=== PATIENT | female | born 1970 | race Caucasian/White ===

== ENCOUNTER 2016-05-24 09:08 | Emergency (ER) | payer BC ==
[2016-05-24 09:47] VITALS: BP 153/84
[2016-05-24] MEDS ORDERED: Albuterol 0.083% 2.5 MG/3 ML Neb Soln NEB ONE (10:08)
--- NOTE | 2016-05-24 10:08 | EDM.PDOC ---
ED HISTORY OF PRESENT ILLNESS - General Chief Complaint: Respiratory Problem Stated Complaint: SHORTNESS OF BREATH Time Seen by Provider: 05/24/16 09:33 Source of Information: Reports: Patient History Limitations: Reports: No limitations - History of Present Illness INITIAL COMMENTS - FREE TEXT/NARRATIVE: Patient presents with cough for the last five days. Fever up to 99.9 yesterday. Two days ago she saw her PCP in clinic and was started on Zithromax which she has been taking as directed. She also has asthma and has been using her albuterol nebulizer every 4 hours as directed, along with her Advair and inhalers. Yesterday and today she has been having shortness of breath along with worsening cough (unproductive). She takes Lisinopril, Metoprolol, Lasix and Potassium; a year ago her potassium level was low and she had cramping in her legs. She has cramping in her legs again but says she has been taking the meds as directed. - Related Data Allergies/ADRs: Allergies Allergy/AdvReac Type Severity Reaction Status Date / Time Latex, Natural Rubber Allergy Unknown Burning Verified 04/23/15 18:30 Home Meds: Home Meds Albuterol Sulfate [Ventolin Hfa] 2 puff INH Q4H PRN 06/09/13 [History] Albuterol [Proventil] 2.5 mg INH QIDRT PRN 06/09/13 [History] Furosemide [Lasix] 20 mg PO ASDIRECTED PRN 06/09/13 [History] Ipratropium/Albuterol Sulfate [Duoneb 0.5 MG-3 MG/3 ML] 3 ml IH QID PRN [History] Metoprolol Tartrate 25 mg PO BID 06/09/13 [History] Potassium Chloride [Klor-Con M20] 20 meq PO BID 06/09/13 [History] atorvaSTATin [Lipitor] 15 mg PO BEDTIME 06/09/13 [History] metFORMIN [Glucophage] 1,000 mg PO BIDM 06/09/13 [History] Ondansetron [Zofran ODT] 4 mg PO Q6H PRN #20 tab.dis 06/11/13 [Rx] Lisinopril [Prinivil] 10 mg PO DAILY 04/09/15 [History] traMADol [Ultram] 50 mg PO Q4H PRN 04/09/15 [History] Fluticasone/Salmeterol [Advair 100-50] 1 puff INH BID 04/10/15 [History] Azithromycin [Zithromax] 250 mg PO DAILY 05/24/16 [History] Escitalopram [Lexapro] 10 mg PO DAILY 05/24/16 [History] LORazepam [Ativan] 0.5 mg PO BID 05/24/16 [History] Omeprazole 20 mg PO DAILY 05/24/16 [History] Triamcinolone Acetonide [Triamcinolone Acetonide 0.1% Crm] 15 gm TOP BID [History] Past Medical History HEENT History: Reports: Sinusitis Cardiovascular History: Reports: High cholesterol, Hypertension Respiratory History: Reports: Asthma Gastrointestinal History: Reports: None [employer] History: Reports: Polycystic Ovaries - Infectious Disease History Infectious Disease History: Reports: Chicken pox, Measles - Past Surgical History HEENT Surgical History: Reports: None GI Surgical History: Reports: Cholecystectomy Female Surgical History: Reports: Hysterectomy Social & Family History - Family History Cardiac: Reports: Angina, Heart failure, High cholesterol, Hypertension, [place] Respiratory: Reports: COPD : Reports: Renal disease/insufficiency Psychiatric: Reports: Bipolar, Depression, Panic attack - Tobacco Use Smoking Status *Q: Never Smoker Second Hand Smoke Exposure: Yes - Caffeine Use Caffeine Use: Reports: Soda, Tea - Alcohol Use Days Per Week of Alcohol Use: 0 - Recreational Drug Use Recreational Drug Use: No ED ROS GENERAL - Review of Systems Review Of Systems: See Below Constitutional: Reports: fever, malaise HEENT: Denies: Eye discharge, Throat pain, Throat swelling Respiratory: Reports: shortness of breath, wheezing, cough. Denies: sputum Cardiovascular: Reports: Blood pressure problem. Denies: Chest pain, Syncope GI/Abdominal: Denies: Abdominal pain, Vomiting : Reports: no symptoms Musculoskeletal: Reports: leg pain Skin: Denies: cyanosis, jaundice, mottled, pallor, diaphoresis Neurological: Denies: confusion, dizziness, headache Psychiatric: Denies: Agitation, Anxiety, Confusion ED EXAM, GENERAL - Physical Exam Exam: See Below Exam Limited By: No limitations General Appearance: alert, WD/WN, no apparent distress, anxious, obese Eye Exam: bilateral eye: EOMI, normal inspection, PERRL Ears: normal external exam, normal canal, hearing grossly normal, normal TMs Nose: normal inspection. No: nasal deformity, nasal drainage Throat/Mouth: Normal inspection, Normal lips, Normal teeth, Normal gums, Normal oropharynx, Normal voice, No airway compromise Head: atraumatic, normocephalic Neck: normal inspection, supple, non-tender, full range of motion Respiratory/Chest: no respiratory distress, no accessory muscle use, decreased breath sounds (in bilat bases), crackles (in bilat bases and middle lung gomez) , wheezing (mild in bases). No: rhonchi, stridor, prolonged expiration Cardiovascular: regular rate, rhythm, no murmur GI/Abdominal: no distention Extremities: normal range of motion Neurological: alert, oriented, normal cognition, no motor/sensory deficits Psychiatric: normal affect, anxious, tearful Skin Exam: Warm, Dry, Intact, Normal color, No rash Lymphatic: no adenopathy Course - Vital Signs Last Recorded V/S: Last Vital Signs Temp 98.5 F 05/24/16 09:17 Pulse 107 H 05/24/16 09:17 Resp 20 05/24/16 09:46 BP 153/84 H 05/24/16 09:46 Pulse Ox 96 05/24/16 09:17 - Orders/Labs/Meds Orders: Active Orders 24 hr Category Date Time Status RT Aerosol Therapy [RC] ASDIRECTED Care 05/24/16 10:08 Ordered Chest 2V [CR] Stat Exams 05/24/16 09:57 Ordered Labs: Laboratory Tests 05/24/16 05/24/16 Range/Units 10:05 10:05 WBC 10.5 H (5.0-10.0) 10^3/uL RBC 5.14 (3.80-5.50) 10^6/uL Hgb 11.5 L (12.0-16.0) g/dL Hct 35.6 L (37.0-47.0) % MCV 69.2 L (82.0-92.0) fL MCH 22.4 L (27.0-31.0) pg MCHC 32.3 (32.0-36.0) g/dL RDW 19.1 H (11.5-14.5) % Plt Count 437 H (150-300) 10^3/uL MPV 7.4 (7.4-10.4) fL Neut % (Auto) 73.5 H (50.0-70.0) % Lymph % (Auto) 14.6 L (20.0-40.0) % Luce % (Auto) 7.4 (2.0-8.0) % Eos % (Auto) 3.8 H (1.0-3.0) % Baso % (Auto) 0.7 (0.0-1.0) % Neut # 7.7 H (2.5-7.0) 10^3/uL Lymph # 1.5 (1.0-4.0) 10^3/uL Luce # 0.8 (0.1-0.8) 10^3/uL Eos # 0.4 H (0.1-0.3) 10^3/uL Baso # 0.1 (0.0-0.1) 10^3/uL Sodium 141 (136-145) mmol/L Potassium 4.7 (3.3-5.3) mmol/L Chloride 103 (98-115) mmol/L Carbon Dioxide 26.5 (21.0-32.0) mmol/L BUN 15 (6-25) mg/dL Creatinine 0.61 (0.51-1.17) mg/dL Est Cr Clr Drug Dosing 95.33 mL/min Estimated GFR (MDRD) > 60 mL/min Glucose 93 (70-110) mg/dL Calcium 8.9 (8.7-10.3) mg/dL Meds: Medications Discontinued Medications Generic Name Dose Route Start Last Admin Trade Name Jcarlos PRN Reason Stop Dose Admin Albuterol 2.5 mg 05/24/16 10:08 05/24/16 10:38 Proventil Neb Soln NEB 05/24/16 10:09 2.5 mg ONETIME ONE Administration Methylprednisolone Sodium Succinate 125 mg 05/24/16 11:12 Solu-Medrol IM 05/24/16 11:13 ONETIME ONE - Re-Assessments/Exams Free Text/Narrative Re-Assessment/Exam: 05/24/16 10:16 Blood pressure recheck shortly after arrival was 153/84. She hasn't had her morning medications yet including the Zithromax and BP meds. Will try an albuterol neb now. Really she is moving air fairly well with only mild, transient wheezing. 05/24/16 11:25 CXR is clear per report. WBC is 10.5 with mild left shift. Patient breathing a little easier after the albuterol neb. Discussed findings and treatment plan with her. Will do SoluMedrol and prednisone along with Cefdinir; she will finish the course of Zithromax. Departure - Departure Time of Disposition: 11:27 Disposition: Home, Self-Care 01 Condition: good Clinical Impression: CAP (community acquired pneumonia) Asthma Qualifiers: Asthma severity: unspecified severity Asthma complication type: with acute exacerbation Qualified Code(s): J45.901 - Unspecified asthma with (acute) exacerbation Instructions: Asthma, Adult, Community-Acquired Pneumonia, Adult, [id number] Forms: ED Department Discharge Additional Instructions: 1. Take the prescriptions as directed and finish the course of Zithromax. 2. Continue the asthma meds. 3. Drink plenty of fluids. 4. Follow up with your PCP NINFA if worsening; you should recheck in 7-10 days to confirm adequate resolution of the pneumonia. - My Orders Last 24 Hours: My Active Orders 05/24/16 09:57 Chest 2V [CR] Stat 05/24/16 10:08 RT Aerosol Therapy [RC] ASDIRECTED - Assessment/Plan Last 24 Hours: My Active Orders 05/24/16 09:57 Chest 2V [CR] Stat 05/24/16 10:08 RT Aerosol Therapy [RC] ASDIRECTED
[2016-05-24 10:58] LABS: CHLORIDE,CL 103 mmol/L (98-115); SODIUM,NA 141 mmol/L (136-145)
[2016-05-24] MEDS ORDERED: methylPREDNISolone Sodium Succinate 125 MG/2 ML SDV IM ONE (11:12)
== END 2016-05-24 11:48 | disposition home or self-care (01) ==
LOC: KA.ED 09:08
DX: J18.9 Pneumonia, unspecified organism (principal); J45.901 Unspecified asthma with (acute) exacerbation; E78.00 Pure hypercholesterolemia, unspecified; I10 Essential (primary) hypertension; Z90.710 Acquired absence of both cervix and uterus; Z90.49 Acquired absence of other specified parts of digestive tract
CPT/HCPCS: 36415; 71020; 80048; 85025; 94640; 96372; 99285; J2930; J7620

== ENCOUNTER 2016-05-29 15:40 | Observation (INO) | payer BC ==
[2016-05-29 16:44] LABS: CHLORIDE,CL 101 mmol/L (98-115); SODIUM,NA 138 mmol/L (136-145)
[2016-05-29] MEDS ORDERED: Sodium Chloride 0.9% 5 ML Syringe FLUSH PRN (17:40)
[2016-05-29] MEDS ORDERED: Ondansetron 4 MG Tab.DIS PO PRN (17:40)
[2016-05-29] MEDS ORDERED: Sodium Chloride 0.9% 1,000 ML IV SCH (17:45)
[2016-05-29] MEDS: metFORMIN 500 MG Tab PO SCH (18:36)
[2016-05-29] MEDS: Cefdinir 300 MG Cap PO SCH (18:36)
[2016-05-29] MEDS: Levofloxacin/Dextrose 5%-Water 500 MG in Premix Bag 1 BAG IV SCH (19:39)
[2016-05-29] MEDS: Budesonide 0.5 MG/2 ML Neb Susp NEB SCH (19:41)
[2016-05-29] MEDS: Levofloxacin/Dextrose 5%-Water 250 MG in Premix Bag 1 BAG IV SCH (20:42)
[2016-05-29] MEDS: Albuterol/Ipratropium 3.0-0.5 MG/3 ML Neb Soln NEB SCH (20:43)
[2016-05-29] MEDS: Potassium Chloride 20 MEQ Tab.ER PO SCH (20:45)
[2016-05-29] MEDS: LORazepam 0.5 MG Tab PO SCH (20:45)
[2016-05-29] MEDS: Metoprolol Tartrate 25 MG Tab PO SCH (20:45)
[2016-05-30] MEDS: Albuterol/Ipratropium 3.0-0.5 MG/3 ML Neb Soln NEB SCH ×5 (01:57→22:34)
[2016-05-30] MEDS: Omeprazole 20 MG Cap.CR PO SCH (06:12)
[2016-05-30] MEDS: Cefdinir 300 MG Cap PO SCH ×2 (06:12→18:04)
[2016-05-30] MEDS: Budesonide 0.5 MG/2 ML Neb Susp NEB SCH ×2 (07:25→20:01)
[2016-05-30] MEDS: Metoprolol Tartrate 25 MG Tab PO SCH ×2 (08:41→21:34)
[2016-05-30] MEDS: Escitalopram 10 MG Tab PO SCH (08:41)
[2016-05-30] MEDS: metFORMIN 500 MG Tab PO SCH ×2 (08:42→18:04)
[2016-05-30] MEDS: LORazepam 0.5 MG Tab PO SCH ×2 (08:42→21:25)
[2016-05-30] MEDS: Lisinopril 10 MG Tab PO SCH (08:42)
[2016-05-30] MEDS: Potassium Chloride 20 MEQ Tab.ER PO SCH (09:21)
[2016-05-30] MEDS: Ibuprofen 400 MG Tab PO PRN (10:21)
[2016-05-30] MEDS: Levofloxacin/Dextrose 5%-Water 500 MG in Premix Bag 1 BAG IV SCH (18:39)
[2016-05-30] MEDS: Levofloxacin/Dextrose 5%-Water 250 MG in Premix Bag 1 BAG IV SCH (20:00)
[2016-05-31] MEDS: Albuterol/Ipratropium 3.0-0.5 MG/3 ML Neb Soln NEB SCH ×2 (05:19→10:48)
[2016-05-31 05:23] VITALS: BP 141/73
[2016-05-31] MEDS: Omeprazole 20 MG Cap.CR PO SCH (06:31)
[2016-05-31] MEDS: Cefdinir 300 MG Cap PO SCH (06:31)
[2016-05-31] MEDS: metFORMIN 500 MG Tab PO SCH (08:08)
[2016-05-31] MEDS: Ibuprofen 400 MG Tab PO PRN (08:08)
[2016-05-31] MEDS: Metoprolol Tartrate 25 MG Tab PO SCH (08:09)
[2016-05-31] MEDS: Escitalopram 10 MG Tab PO SCH (08:09)
[2016-05-31] MEDS: Lisinopril 10 MG Tab PO SCH (08:09)
[2016-05-31] MEDS: Budesonide 0.5 MG/2 ML Neb Susp NEB SCH (08:55)
[2016-05-31] MEDS: LORazepam 0.5 MG Tab PO SCH (08:57)
[2016-05-31] MEDS ORDERED: methylPREDNISolone Sodium Succinate 125 MG/2 ML SDV IVPUSH ONE (09:45)
[2016-05-31] MEDS ORDERED: Montelukast 10 MG Tab PO SCH (21:00)
--- NOTE | 2016-06-02 10:44 | DISCH ---
ADMITTING DIAGNOSIS: Wheezing with asthma exacerbation, failed outpatient treatment; dehydration. FINAL DIAGNOSIS: Acute bronchitis with wheezing versus exacerbation of asthma. BRIEF HISTORY AND ESSENTIAL PHYSICAL FINDINGS: The patient had been sick for over a week. She went to the emergency room a week ago on Thursday. She was given some prednisone and some breathing treatments and placed on Omnicef 300 mg twice daily. She continued to be very short of breath at home. She says that she started having a fever, shortness of breath, just did not feel good. She came back in the clinic on . At that time, she was admitted to the hospital on observation status. SIGNIFICANT LABS XRAYS AND CONSULTATION FINDINGS: The patient's x-ray that was obtained did not show any infiltrates or pneumonia per Radiology. The patient's lab work that was obtained in the hospital on 05/29/2016; the patient's CBC showed a white count elevated at 17.2, hemoglobin slightly low at 11.8. Chemistry panel was unremarkable. Repeat CBC that was obtained on 05/30/2016 did show improvements. The patient's WBC count had come down to 16.4, hemoglobin remained low at 11.1, platelet count was 451. COURSE IN HOSPITAL WITH COMPLICATIONS IF ANY: The patient's lung sounds did improve. She states that after breathing treatments she did feel better. She was afebrile at the time of discharge. She was able to walk around the hospital with nursing staff with an O2 saturation monitor with no O2 saturation drops. Cough was much improved. CONDITION TREATMENT AND FINAL DISPOSITION ON DISCHARGE AND PROGNOSIS: Condition is stable. Final disposition, to be home with . IMPRESSION AND PLAN: 1. Acute bronchitis with wheezing versus exacerbation of asthma, most likely viral syndrome. We will send the patient home on prednisone tapering dose. I did give her a one-time dose of Solu-Medrol IV here in the hospital before discharge of 60 mg. I am going to send her home on a tapering dose of prednisone 40 mg for three days, 30 mg for three days, 20 mg for three days, 10 mg for three days, then 5 mg for three days, then discontinue. Also going to send her home on DuoNeb, she can do at home every 6 hours as needed for cough, shortness of breath, or wheezing. I am going to start the patient on some Singulair 10 mg at bedtime. Also going to continue antibiotic therapy at home. I am going to send her home on Levaquin 500 mg daily for five more days. Also she can continue to take the remainder of her Omnicef that she was prescribed a week ago at 300 mg twice a day. 2. History of depression. Plan: Continue with Lexapro 10 mg daily along with Ativan as needed. 3. History of hypertension. Plan: Continue with lisinopril 10 mg daily along with metoprolol tartrate 25 mg twice daily. 4. History of gastroesophageal reflux disease. Plan: Continue with omeprazole 20 mg daily. 5. History of diabetes mellitus, type 2. Plan: Continue with metformin 1000 mg twice daily. OVERALL PLAN: Have the patient follow up with Kristian Hare, nurse practitioner, on Thursday in the clinic. I will give the patient a work note; no work until then. /[id number]/MODL MTDD
--- NOTE | 2016-06-02 10:44 | PN ---
05/30/2016 PATIENT NAME: CHARLENE ARCOS CHIEF COMPLAINT: Overall generalized feels better, less wheezing, less of a cough, little more strength today, less fatigue. No nausea, vomiting, or diarrhea. BRIEF HISTORY: This 45-year-old female who has failed outpatient treatment had been seen in the ED a few days ago, was given cephalosporin for appeared to be a viral pneumonia. Also, a few days prior to that, she did complete a course of azithromycin due to an ongoing cough; however, she stated yesterday she came in with severe body aches, increase in worsening wheezing, mild shortness of breath. She just felt extremely bad. She was very tearful, had headaches. Today, she was very weak, worsening cough. She does work at a daycare locally in town here. She appeared lightheaded and diaphoresis in the clinic. Lightheaded upon standing up. She stated she has not been drinking quite a bit of fluids. It was determined we did admit her for IV hydration for further workup, adjusting up her pulmonary medications on admission. Her white count was 17,000, hemoglobin 11.8, and hematocrit 36.6. All electrolytes were normal. She did receive Levaquin last night. Hemoglobin is starting to come down. Percentage neutrophils last night was 81%, now they are 60%. Chest x-ray in the clinic shows no infiltrate, no consolidations, likely she has a bacterial bronchitis with some mild exacerbation of her asthma. She is a very obese lady which does contribute to increase in thoracic pressure. PHYSICAL EXAMINATION: VITAL SIGNS: Temperature is 97.2, heart rate 80 and regular, blood pressure 140/81, O2 sats 97% on room air, and respiratory rate of 20. CV: Regular rate and rhythm. No S3 sound. No murmur. LUNGS: About 50% improvement. Still some expiratory wheezes posteriorly, mild anteriorly, however, no use of diaphragmatic muscles for breathing. Negative lymphadenopathy. No coryza. She had a negative influenza in the clinic few days ago. ABDOMEN: Nontender. Hypotonic bowel tones. She has no mucus production. IMPRESSION AND PLAN: 1. Asthmatic bronchitis likely bacterial. She seems to be responding to Levaquin. We will continue with IV Levaquin today. Mild asthma exacerbation. Held Advair at this time. Put her on Pulmicort nebulizer along with DuoNeb. She is approximately 50% better. There was some improvement. 2. Reactive thrombocytosis likely due to infection that is improving. White count is coming down. 3. Dehydration. This is mild. Become more euvolemic today. Saline lock her IV today. Overall plan, continue her on observation today as she feels about 50% improvement likely could go home tomorrow. We will saline lock her IV. Continue her on respiratory medications for Pulmicort and DuoNeb. Continue with IV levofloxacin. Labs in the morning. I have her walk around today. Ongoing education regarding influenza vaccination; however, the patient has not received these. /[id number]/MODL
== END 2016-05-31 16:45 | disposition home or self-care (01) ==
LOC: KA.MS 15:40
PROVIDERS: ADMIT Nurse Practitioner Family; ATTEND Nurse Practitioner Family
DX: J45.901 Unspecified asthma with (acute) exacerbation (principal); J40 Bronchitis, not specified as acute or chronic; F32.9 Major depressive disorder, single episode, unspecified; I10 Essential (primary) hypertension; K21.9 Gastro-esophageal reflux disease without esophagitis; E86.0 Dehydration; E11.9 Type 2 diabetes mellitus without complications; Z79.899 Other long term (current) drug therapy; Z91.040 Latex allergy status; F41.9 Anxiety disorder, unspecified; Z90.710 Acquired absence of both cervix and uterus; Z90.49 Acquired absence of other specified parts of digestive tract; E78.00 Pure hypercholesterolemia, unspecified
CPT/HCPCS: 36415; 71020; 80048; 85025; 94640; 96361; 96365; 96366; 96375; A9270; G0378; G0379; J1956; J2930; J7030

== ENCOUNTER 2017-04-22 09:08 | Day surgery (SDC) | payer BC ==
[~2017-04-22 09:08] MED LIST: Lactated Ringers 1,000 ML IV SCH; Sodium Chloride 0.9% 5 ML Syringe FLUSH PRN
[2017-04-22] MEDS ORDERED: ceFAZolin 1 GM Vial ONE (10:08)
[2017-04-22] MEDS ORDERED: Lidocaine 0.5% 50 ML SDV ONE (10:09)
[2017-04-22] MEDS ORDERED: Propofol 200 MG/20 ML SDV ONE (10:09)
[2017-04-22] MEDS ORDERED: Midazolam 1 MG/ML 2 ML SDV ONE ×2 (10:09→12:50)
[2017-04-22] MEDS ORDERED: fentaNYL 100 MCG/2 ML SDV ONE (10:09)
[2017-04-22] MEDS ORDERED: ceFAZolin 1 GM Vial IV ONE (12:30)
[2017-04-22] MEDS ORDERED: Midazolam 1 MG/ML 2 ML SDV IV ONE (12:30)
[2017-04-22] MEDS ORDERED: Propofol 200 MG/20 ML SDV IV ONE (12:30)
[2017-04-22] MEDS ORDERED: fentaNYL 100 MCG/2 ML SDV IV ONE (12:30)
[2017-04-22] MEDS ORDERED: Bupivacaine 0.5% 30 ML SDV ONE (12:49)
[2017-04-22] MEDS ORDERED: Bupivacaine 0.5% 30 ML SDV INFILT ONE (12:52)
--- NOTE | 2017-04-22 13:04 | PCM.PRNOTE ---
- Free Text/Narrative Note: INFORMED CONSENT: Patient is here today for elective right carpal tunnel release. All aspects of this procedure have been discussed with the patient. All possible complications also, including possibility of , infection, pain, bleeding, numbness in failure of the operation to relieve the symptoms and unknown complications. Anesthetic complications were handled by anesthesia department. The patient understands fully well. Patient did not have any further questions for me at the end of my interview. The patient wishes for me to proceed. PROCEDURE: Patient was kept in the supine position and the satisfactory [place] block anesthesia was administered. The right arm was thoroughly prepped and draped in the usual fashion. The tourniquet was placed to the right upper arm and a vertical incision was made in the palm directly distal to the distal wrist crease. The skin incision was deepened through the subcutaneous tissue, the palmar aponeurosis was incised and then we came down upon the transverse carpal ligament, which was opened along the line of the skin incision. Extreme care was taken to protect the median nerve below. Careful neurolysis was performed meticulously. Approximately 2 cc of Marcaine 0.5% was instilled into the wound and skin was closed using mattress sutures with 3.0 Nylon. The tourniquet was released. A sterile pressure dressing was applied. The patient tolerated the procedure well and was transferred to the recovery room in excellent condition.
[2017-04-22] MEDS ORDERED: traMADol 50 MG Tab PO ONE (15:10)
[2017-04-22 15:56] VITALS: BP 110/68
== END 2017-04-22 15:45 | disposition home or self-care (01) ==
LOC: KA.SDS 09:08
PROVIDERS: ATTEND Family Medicine
DX: G56.03 Carpal tunnel syndrome, bilateral upper limbs (principal); E66.01 Morbid (severe) obesity due to excess calories; F41.9 Anxiety disorder, unspecified; K21.9 Gastro-esophageal reflux disease without esophagitis; J45.909 Unspecified asthma, uncomplicated; E78.00 Pure hypercholesterolemia, unspecified; I10 Essential (primary) hypertension; Z68.42 Body mass index [BMI] 45.0-49.9, adult; Z79.899 Other long term (current) drug therapy; Z79.84 Long term (current) use of oral hypoglycemic drugs; Z91.040 Latex allergy status; Z90.710 Acquired absence of both cervix and uterus; Z90.49 Acquired absence of other specified parts of digestive tract
CPT/HCPCS: 64721; A9270; J0690; J2250; J2704; J3010; J7120

== ENCOUNTER 2017-06-17 09:11 | Day surgery (SDC) | payer BC ==
[~2017-06-17 09:11] MED LIST changes: -Lactated Ringers 1,000 ML IV SCH; +Lidocaine 0.5% 50 ML SDV ONE; +Midazolam 1 MG/ML 2 ML SDV ONE; +Propofol 200 MG/20 ML SDV ONE; +ceFAZolin 1 GM Vial ONE; +fentaNYL 100 MCG/2 ML SDV ONE
[2017-06-17] MEDS ORDERED: Bupivacaine 0.5% 30 ML SDV ONE (09:53)
[2017-06-17] MEDS: Lactated Ringers 1,000 ML IV SCH (09:59)
[2017-06-17] MEDS ORDERED: Lidocaine 0.5% 50 ML SDV INJECT ONE (10:37)
[2017-06-17] MEDS ORDERED: Propofol 200 MG/20 ML SDV IV ONE (10:37)
[2017-06-17] MEDS ORDERED: Midazolam 1 MG/ML 2 ML SDV IV ONE (10:37)
[2017-06-17] MEDS ORDERED: ceFAZolin 1 GM Vial IV ONE (10:37)
[2017-06-17] MEDS ORDERED: fentaNYL 100 MCG/2 ML SDV IV ONE (10:37)
[2017-06-17] MEDS: Bupivacaine 0.5% 10 ML SDV INFILT ONE (10:50)
--- NOTE | 2017-06-17 11:23 | PCM.OPNOTE ---
- General Post-Op/Procedure Note Date of Surgery/Procedure: 06/17/17 Operative Procedure(s): Left carpal tunnel decompression Anesthesia Technique: Regional Block Primary Surgeon: Annita Link Complications: None Condition: Good Free Text/Narrative:: INFORMED CONSENT: Patient is here today for elective left carpal tunnel repair. All aspects of this procedure have been discussed with the patient. All possible complications also, including possibility of perforation, infection, pain, bleeding and unknown complications. In the event of perforation patient may need to have abdominal exploration, colon resection, colostomy and even was discussed. Anesthetic complications were handled by anesthesia department. The patient understands fully well. Patient did not have any further questions for me at the end of my interview. The patient wishes for me to proceed. PROCEDURE: Patient was kept in the supine position and the satisfactory [place] block anesthesia was administered. The left arm was thoroughly prepped and draped in the usual fashion. The tourniquet was placed to the left upper arm and a vertical incision was made in the palm directly distal to the distal wrist crease. The skin incision was deepened through the subcutaneous tissue, the palmar aponeurosis was incised and then we came down upon the transverse carpal ligament, which was opened along the line of the skin incision. Extreme care was taken to protect the median nerve below. Careful neurolysis was performed meticulously. Approximately 2 cc of Marcaine 0.5% was instilled into the wound and skin was closed using mattress sutures with 3.0 Nylon. The tourniquet was released. A sterile pressure dressing was applied. The patient tolerated the procedure well and was transferred to the recovery room in excellent condition.
[2017-06-17] MEDS: traMADol 50 MG Tab PO ONE (12:51)
[2017-06-17 13:06] VITALS: BP 112/74
== END 2017-06-17 13:42 | disposition home or self-care (01) ==
LOC: KA.SDS 09:11
PROVIDERS: ATTEND Family Medicine
DX: G56.02 Carpal tunnel syndrome, left upper limb (principal); F41.9 Anxiety disorder, unspecified; E66.01 Morbid (severe) obesity due to excess calories; K21.9 Gastro-esophageal reflux disease without esophagitis; J45.909 Unspecified asthma, uncomplicated; I10 Essential (primary) hypertension; E78.00 Pure hypercholesterolemia, unspecified; Z91.040 Latex allergy status; Z79.84 Long term (current) use of oral hypoglycemic drugs; Z79.899 Other long term (current) drug therapy; Z68.41 Body mass index [BMI] 40.0-44.9, adult
CPT/HCPCS: A9270-GY; J0690; J2250; J2704; J3010; J7120